=== PATIENT | female | born 1990 ===

== ENCOUNTER → 2019-02-19 | Outpatient (REF) | LOC: M LAB LCGH 14:48 | PROVIDERS: ATTEND Obstetrics & Gynecology | DX: O77.0 Labor and delivery complicated by meconium in amniotic fluid (principal) ==

== ENCOUNTER → 2019-04-24 | Outpatient (REF) | payer OTHER | LOC: M LAB LCGH 12:11 | PROVIDERS: ATTEND Obstetrics & Gynecology | DX: R87.619 Unspecified abnormal cytological findings in specimens from cervix uteri (principal) ==